=== PATIENT | female | born 1945 | race Caucasian/White ===

== ENCOUNTER 2023-04-05 14:43 | Outpatient (CLI) | payer MEDICARE | END 2023-04-05 14:44 | disposition home or self-care (01) | LOC: CSHMAMMO 14:43 | PROVIDERS: ATTEND Internal Medicine | DX: Z12.31 Encounter for screening mammogram for malignant neoplasm of breast (principal); Z13.820 Encounter for screening for osteoporosis; M81.0 Age-related osteoporosis without current pathological fracture; M85.89 Other specified disorders of bone density and structure, multiple sites; Z80.3 Family history of malignant neoplasm of breast; Z98.82 Breast implant status | CPT/HCPCS: 77063; 77067; 77080 ==

== ENCOUNTER 2025-01-03 13:32 | Outpatient (CLI) | payer MEDICARE | END 2025-01-03 13:33 | disposition home or self-care (01) | LOC: CSHCP 13:32 | PROVIDERS: ATTEND Internal Medicine Critical Care Medicine | DX: J45.909 Unspecified asthma, uncomplicated (principal) | CPT/HCPCS: 94060; 94664; 94726; 94729; 94760 ==